=== PATIENT | male | born 1955 | race Caucasian/White ===

== ENCOUNTER 2017-07-02 13:35 | Inpatient (IN) | END 2017-07-05 16:15 | disposition home health service (06) | DRG 66 ==

== ENCOUNTER 2017-12-26 19:38 | Inpatient (IN) | END 2018-01-01 14:33 | disposition home or self-care (01) | DRG 550 ==

== ENCOUNTER 2018-04-01 13:06 | Emergency (ER) | END 2018-04-01 15:51 | disposition home or self-care (01) ==

== ENCOUNTER 2018-11-18 13:22 | Emergency (ER) | payer MEDICAID ==
[~2018-11-18] VITALS: Ht 157.5 cm; Wt 96.9 kg
[~2018-11-18 13:22] MED LIST: ALLO300T2 PO; ATOR-2 PO; COLC0.6C PO; MULTI PO; NAPR500T8 PO
[2018-11-18 13:25] VITALS: BP 160/79; PULSE 84; RESP 18; Ht 157.5 cm; Wt 96.9 kg
[2018-11-18] MEDS ORDERED: ONDANSETRON (ODT) 4 MG TAB ODT STA (14:17)
[2018-11-18] MEDS ORDERED: HYDROCODONE/APAP (5/325) TAB PO ONE (14:30)
[2018-11-18] MEDS ORDERED: HYDR-4011 PO (15:16)
[2018-11-18] MEDS ORDERED: DICL100G37 TOP (15:16)
[2018-11-18] MEDS ORDERED: NAPR-985 PO (15:16)
--- NOTE | 2018-11-18 16:01 | ERD ---
ER Documentation Chief Complaint Chief Complaint RIGHT LEG PAIN X 1 WEEK HPI 63-year-old male presenting with right knee pain for x1 week. Patient states is progressively worsened over the last 12 days. Patient is taking Motrin and has a history of arthritis. No recent falls. No numbness or tingling. No swellin g. Denies medical problems. NKDA. Surgical history heart surgery. Social history denies ROS All systems reviewed and are negative except as per history of present illness. Medications Home Meds Active Scripts Diclofenac Sodium* (Voltaren* Gel) 1% -100 Gm Gel, 2 GM TOP QID, #1 TUB Prov:CHELI COTA PA-C 11/18/18 Naproxen* (Naprosyn*) 500 Mg Tablet, 500 MG PO BID PRN for PAIN AND/OR INFLAMMATION, #30 TAB Prov:CHELI COTA PA-C 11/18/18 Hydrocodone/Acetaminophen ([place] 5-325 Tablet) 1 Each Tablet, 1 TAB PO Q6H PRN for PAIN, #7 TAB Prov:CHELI COTA PA-C 11/18/18 Naproxen* (Naproxen EC*) 500 Mg Tablet.dr, 500 MG PO BID PRN for PAIN for 10 Days, #20 TAB Prov:CAPRICE NGUYỄN MD 01/01/18 Colchicine (Colchicine) 0.6 Mg Capsule, 0.6 MG PO DAILY for 30 Days, #30 CAP Prov:CAPRICE NGUYỄN MD 01/01/18 Reported Medications Allopurinol* (Allopurinol*) 300 Mg Tablet, 300 MG PO DAILY, TAB 12/27/17 Atorvastatin* (Atorvastatin*) 80 Mg Tablet, 80 MG PO QHS, #30 TAB PER PT NON COMPLAINT 12/26/17 Multivitamins* (Theragran*) 1 Tab Tab, 1 TAB PO DAILY, TAB 07/02/17 Allergies Allergies: Coded Allergies: No Known Allergy (Unverified , 07/02/17) PMhx/Soc History of Surgery: No (Hernia-1981; Head Surgery 15 years ago,CABG-5 years) Anesthesia Reaction: No Hx Neurological Disorder: No Hx Respiratory Disorders: Yes (sinosinus) Hx Cardiac Disorders: Yes (HTN, CABG- 5 years) Hx Psychiatric Problems: Yes (Depression unknown date) Hx Miscellaneous Medical Probl: Yes (HTN, CAD with CABG, gout, depression ) Hx Alcohol Use: No Hx Substance Use: No Hx Tobacco Use: No Smoking Status: Never smoker FmHx Family History: No diabetes, No coronary disease, No other Physical Exam Vitals Vital Signs Date Temp Pulse Resp B/P (MAP) Pulse Ox O2 O2 Flow FiO2 Time Delivery Rate 11/18/18 98.1 84 18 160/79 99 13:25 (106) Physical Exam GENERAL: The patient is well-appearing, well-nourished, in no acute distress CHEST: Clear to auscultation bilaterally. There are no rales, wheezes or rhonchi. HEART: Regular rate and rhythm. No murmurs, clicks, rubs or gallops. EXTREMITIES: Tender palpation of right knee. No swelling noted. No valgus or varus deformity. No warmth. Normal flexion and extension and strength 5 out of 5 with flexion extension. NEUROLOGIC: Alert and oriented. Cranial nerves II through XII intact. Motor strength in all 4 extremities with 5 out of 5 strength. Sensation grossly intact. Normal speech and gait. Babinski negative. DTR 2+ throughout. SKIN: There is no apparent rash or petechiae. The skin is warm and dry. Results 24 hrs Current Medications Medications Dose Sig/Sakshi Start Time Status Last (Trade) Ordered Route PRN Stop Time Admin Dose Reason Admin 1 tab ONCE ONCE 11/18/18 DC 11/18/18 Acetaminophen PO 14:30 11/18/18 14:21 / 14:31 Hydrocodone Bitart ([place] (5/325)) Ondansetron 4 mg ONCE STAT 11/18/18 DC 11/18/18 HCl (Zofran ODT 14:17 11/18/18 14:21 Odt) 14:18 Procedures/MDM DIAGNOSTIC IMAGING REPORT Patient: KATIE ARMENDARIZ : 1955 Age: 63 Sex: M MR #: [id number] DOS: 11/18/18 1353 Ordering MD: CANDE COTA PA-C Location: [facility] Room/Bed: PROCEDURE: XR Knee. CLINICAL INDICATION: Right knee pain TECHNIQUE: Three views of the right knee are available for review. COMPARISON: None available FINDINGS: There is no acute fracture or dislocation. There is mild joint space narrowing of the medial compartment with minimal osseous spurring. Lateral compartment joint space is maintained. There is a moderate joint effusion. There are surgical clips within the posterior medial knee. RPTAT: ZZ IMPRESSION: 1. Mild medial compartment osteoarthrosis. 2. Moderate joint effusion. 3. Few surgical clips within the posterior and medial knee. MDM: 63-year-old male presenting with right knee pain. I have low suspicion for acute fracture dislocation. I have low suspicion for tendon or ligament rupture. I have low suspicion for septic joint. Patient has findings consistent with osteoarthritis and I have low suspicion for infectious process. Patient is recommended to follow-up with orthopedist as he likely would benefit from an MRI. Patient is discharged with supportive medications. All questions answered at discharge Departure Diagnosis: Primary Impression: Arthritis Condition: Stable Patient Instructions: Osteoarthritis: Coping with Pain Referrals: [facility] Hours: Sat-Sat 9:00 AM - 5:00 PM Additional Instructions: FOLLOW UP WITH YOUR PRIMARY CARE PHYSICIAN TOMORROW.Return to this facility if you are not improving as expected. CHELI COTA PA-C Nov 18, 2018 16:01
== END 2018-11-18 15:36 | disposition home or self-care (01) ==
LOC: FTE 13:22
DX: M19.90 Unspecified osteoarthritis, unspecified site (principal); I10 Essential (primary) hypertension; I25.10 Atherosclerotic heart disease of native coronary artery without angina pectoris; Z95.1 Presence of aortocoronary bypass graft
CPT/HCPCS: 73562; Z7502; Z7610